=== PATIENT | female | born 1985 | race Caucasian/White ===

== ENCOUNTER 2017-06-25 20:07 | Emergency (ER) | payer BC ==
[~2017-06-25] VITALS: Ht 162.6 cm; Wt 96.6 kg
[2017-06-25 20:12] VITALS: BP 153/84
[2017-06-25 20:47] LABS: BASO # 0.1 x10^3/uL (0.0-0.2); BASO % 1 % (0-3); EOS % 1 % (0-3); HEMATOCRIT 43.5 % (36.0-47.0); HEMOGLOBIN 14.4 g/dL (12.0-15.5); LYMPH # 4.3 x10^3/uL (1.0-4.8); LYMPH % 30 % (24-48); MEAN CORPUSCULAR HEMOGLOBIN 30 pg (25-35); MEAN CORPUSCULAR HGB CONC 33 g/dL (31-37); MEAN CORPUSCULAR VOLUME 92 fL (79-100); MONO % 7 % (0-9); NEUT % 61 % (31-73); PLATELET COUNT 235 x10^3/uL (140-400); RED BLOOD COUNT 4.75 x10^6/uL (3.50-5.40); RED CELL DISTRIBUTION WIDTH 12.6 % (11.5-14.5); WHITE BLOOD COUNT 14.1 x10^3/uL (4.0-11.0)
[2017-06-25] MEDS ORDERED: KETOROLAC 15 MG/ML VIAL. IV ONE (21:00)
[2017-06-25 22:07] LABS: CALCIUM 9.3 mg/dL (8.5-10.1); CREATININE 0.8 mg/dL (0.6-1.0); GFR 83.1; POTASSIUM 4.4 mmol/L (3.5-5.1)
[2017-06-25 22:14] LABS: ALBUMIN 3.9 g/dL (3.4-5.0); ALBUMIN/GLOBULIN RATIO 1.2 (1.0-1.7); TOTAL BILIRUBIN 0.3 mg/dL (0.2-1.0); TOTAL PROTEIN 7.2 g/dL (6.4-8.2)
[2017-06-25] MEDS ORDERED: HYDROmorphone 2 MG/ML VIAL IV ONE (22:15)
[2017-06-25] MEDS ORDERED: TRAM-48 PO (22:41)
[2017-06-25] MEDS ORDERED: AMOX500C PO (22:41)
--- NOTE | 2017-06-25 22:42 | PHYS DOC ---
Past Medical History Past Medical History: Other Additional Past Medical Histor: HERNIATED DISC; GALLSTONES Past Surgical History: No Surgical History Alcohol Use: None Drug Use: None Adult General Chief Complaint Chief Complaint: MULTIPLE COMPLAINTS HPI HPI Patient is a 32 year old female who presents here today complaining of dental pain and chest pain that's been going on for approximately 1-2 days now. Patient reports that she's had a cough and congestion. Patient denies any history of hypertension diabetes liver longer kidney problems. Patient has any prior surgeries. Patient does not smoke drink or do any drugs. Patient has no history of PE or DVT. Patient has no family history of PE or DVT. Patient is not on any oral contraceptive pills. Patient's last menstrual period was May 28, 2017. Patient denies any fevers shakes chills dysuria frequency urgency nausea vomiting diarrhea or abdominal pain. Patient denies any exertional chest pain. Patient reports the pain increases with deep inspiration and cough. Patient reports she has pain in her left upper jaw Radiating to her ear.Review of systems Constitutional: Denies fever or chills Eyes: Denies change in visual acuity, redness, or eye pain All other review systems are negative except as documented in the history of present illness portion. Physical exam Constitutional: Well developed, well nourished, no acute distress, non-toxic appearance. HENT: Normocephalic, atraumatic, bilateral external ears normal, oropharynx moist, no oral exudates, nose normal. Tenderness to palpation to her left upper gums. Eyes: conjunctiva normal, no discharge. Neck: Normal range of motion, no tenderness, supple, no stridor. Cardiovascular:Heart rate regular rhythm, 100% reproducible tenderness to palpation to her midsternal area and left anterior chest wall. Lungs & Thorax: Bilateral breath sounds clear to auscultation Abdomen: Bowel sounds normal, soft, no tenderness, no masses, no pulsatile masses. Skin: Warm, dry, Back: No tenderness, Extremities: No tenderness, no cyanosis, Neurologic: Alert and oriented X 3, normal motor function, normal sensory function, no focal deficits noted. Psychologic: Affect normal, judgement normal, mood normal. Assessment and plan this is a 32-year-old female who presents here today complaining of pleuritic chest pain as well as dental pain. Patient's clinically and hemodynamically stable. Patient's EKG was nondiagnostic. EKG revealed normal sinus rhythm with nonspecific ST-T wave abnormalities and no evidence of ST elevation AK. Patient's chest x-ray was clear without evidence of pneumonia. No infiltrates or effusions or pneumothorax. Patient's CBC CMP and chemistry were all within normal limits. Patient received Toradol and Dilaudid with significant improvement in her pain. Patient be discharged home with Ultram as well as amoxicillin to assist her with her dental pain for possible dental infection. Current Medications Current Medications Current Medications Medications (Trade) Dose Ordered Sig/[place] Start Time Stop Time Status Last Admin Dose Admin Hydromorphone HCl (Dilaudid) 0.5 mg 1X ONCE 06/25/17 22:15 06/25/17 22:16 DC 06/25/17 22:07 0.5 MG Ketorolac Tromethamine (Toradol) 15 mg 1X ONCE 06/25/17 21:00 06/25/17 21:01 DC 06/25/17 20:58 15 MG Allergies Allergies Allergies Coded Allergies Type Severity Reaction Last Updated Verified oxycodone Allergy Intermediate DOSEN'T LIKE IT 09/22/14 No Current Patient Data Vital Signs Vital Signs Date Time Temp Pulse Resp B/P (MAP) Pulse Ox O2 Delivery O2 Flow Rate FiO2 06/25/17 20:12 99.1 90 22 153/84 (107) 98 Room Air 99.1 Lab Values Laboratory Tests Test 06/25/17 20:24 06/25/17 21:40 White Blood Count 14.1 x10^3/uL (4.0-11.0) H Red Blood Count 4.75 x10^6/uL (3.50-5.40) Hemoglobin 14.4 g/dL (12.0-15.5) Hematocrit 43.5 % (36.0-47.0) Mean Corpuscular Volume 92 fL (79-100) Mean Corpuscular Hemoglobin 30 pg (25-35) Mean Corpuscular Hemoglobin Concent 33 g/dL (31-37) Red Cell Distribution Width 12.6 % (11.5-14.5) Platelet Count 235 x10^3/uL (140-400) Neutrophils (%) (Auto) 61 % (31-73) Lymphocytes (%) (Auto) 30 % (24-48) Monocytes (%) (Auto) 7 % (0-9) Eosinophils (%) (Auto) 1 % (0-3) Basophils (%) (Auto) 1 % (0-3) Neutrophils # (Auto) 8.6 x10^3uL (1.8-7.7) H Lymphocytes # (Auto) 4.3 x10^3/uL (1.0-4.8) Monocytes # (Auto) 0.9 x10^3/uL (0.0-1.1) Eosinophils # (Auto) 0.2 x10^3/uL (0.0-0.7) Basophils # (Auto) 0.1 x10^3/uL (0.0-0.2) Sodium Level 141 mmol/L (136-145) Potassium Level 4.4 mmol/L (3.5-5.1) Chloride Level 105 mmol/L (98-107) Carbon Dioxide Level 27 mmol/L (21-32) Anion Gap 9 (6-14) Blood Urea Nitrogen 18 mg/dL (7-20) Creatinine 0.8 mg/dL (0.6-1.0) Estimated GFR (Cockcroft-Gault) 83.1 BUN/Creatinine Ratio 23 (6-20) H Glucose Level 102 mg/dL (70-99) H Calcium Level 9.3 mg/dL (8.5-10.1) Total Bilirubin 0.3 mg/dL (0.2-1.0) Aspartate Amino Transferase (AST) 17 U/L (15-37) Alanine Aminotransferase (ALT) 27 U/L (14-59) Alkaline Phosphatase 102 U/L (46-116) Troponin I Quantitative < 0.017 ng/mL (0.000-0.055) Total Protein 7.2 g/dL (6.4-8.2) Albumin 3.9 g/dL (3.4-5.0) Albumin/Globulin Ratio 1.2 (1.0-1.7) Laboratory Tests 06/25/17 20:24 Laboratory Tests 06/25/17 21:40 EKG EKG [] Radiology/Procedures Radiology/Procedures [] Course & Med Decision Making Course & Med Decision Making Pertinent Labs and Imaging studies reviewed. (See chart for details) [] Dragon Disclaimer Dragon Disclaimer This electronic medical record was generated, in whole or in part, using a voice recognition dictation system. Departure Departure Impression: Primary Impression: Pain, dental Additional Impressions: Chest pain Upper respiratory infection Disposition: HOME, SELF-CARE Condition: IMPROVED Referrals: NO PCP (PCP) Patient Instructions: Acute Bronchitis, Chest Wall Pain, Dental Pain Scripts Tramadol Hcl (ULTRAM) 50 Mg Tablet 1 TAB PO Q6HRS, #14 TAB Prov: MIGUEL FERREIRA MD 06/25/17 Amoxicillin (AMOXICILLIN) 500 Mg Capsule 1 CAP PO TID, #30 CAP Prov: MIGUEL FERREIRA MD 06/25/17 Problem Qualifiers MIGUEL FERREIRA MD Jun 25, 2017 22:42
--- NOTE | 2017-06-26 08:27 | RAD ---
PA and lateral chest. History: Chest pain PA and lateral views were taken of the chest. Lungs are clear. Heart is normal in size. There is no pleural effusion. Impression: 1. No acute chest disease.
== END 2017-06-25 23:11 | disposition home or self-care (01) ==
LOC: ER 20:07
DX: K08.9 Disorder of teeth and supporting structures, unspecified (principal); R07.89 Other chest pain; J06.9 Acute upper respiratory infection, unspecified; Z88.5 Allergy status to narcotic agent
CPT/HCPCS: 36415; 71020; 80053; 84484; 85025; 96374; 96375; 99285; J1170; J1885

== ENCOUNTER 2017-09-26 01:42 | Emergency (ER) | payer BC ==
[2017-09-26 02:11] LABS: BASO # 0.1 x10^3/uL (0.0-0.2); BASO % 0 % (0-3); BILIRUBIN,URINE NEGATIVE (NEG); CLARITY,URINE CLOUDY; COLOR,URINE YELLOW; EOS # 0.1 x10^3/uL (0.0-0.7); EOS % 1 % (0-3); GLUCOSE,URINE NEGATIVE (NEG); HEMATOCRIT 45.1 % (36.0-47.0); HEMOGLOBIN 14.7 g/dL (12.0-15.5); LYMPH % 7 % (24-48); MEAN CORPUSCULAR HEMOGLOBIN 30 pg (25-35); MEAN CORPUSCULAR HGB CONC 33 g/dL (31-37); MEAN CORPUSCULAR VOLUME 92 fL (79-100); MONO # 0.8 x10^3/uL (0.0-1.1); MONO % 5 % (0-9); NEUT # 12.9 x10^3uL (1.8-7.7); NEUT % 87 % (31-73); NITRITE,URINE NEGATIVE (NEG); PH,URINE 5.5; PLATELET COUNT 193 x10^3/uL (140-400); PROTEIN,URINE NEGATIVE (NEG-TRACE); RED BLOOD COUNT 4.92 x10^6/uL (3.50-5.40); RED CELL DISTRIBUTION WIDTH 12.8 % (11.5-14.5); UROBILINOGEN,URINE 0.2 mg/dL (0.2 mg/dL); WHITE BLOOD COUNT 14.8 x10^3/uL (4.0-11.0)
[2017-09-26 02:12] LABS: ADD MAN DIFF? YES
[2017-09-26 02:13] LABS: URINE HCG POC HCG NEGATIVE (Negative)
[2017-09-26 02:17] LABS: BACTERIA,URINE FEW /HPF (0-FEW); RBC,URINE 0 /HPF (0-2); SQUAMOUS EPITHELIAL CELL,UR MANY /LPF
[2017-09-26 02:20] LABS: ANION GAP 12 (6-14); BLOOD UREA NITROGEN 22 mg/dL (7-20); BUN/CREATININE RATIO 31 (6-20); CALCIUM 7.9 mg/dL (8.5-10.1); CARBON DIOXIDE 24 mmol/L (21-32); CHLORIDE 105 mmol/L (98-107); CREATININE 0.7 mg/dL (0.6-1.0); GLUCOSE 125 mg/dL (70-99); SODIUM 141 mmol/L (136-145)
[2017-09-26] MEDS: IV NORMAL SALINE 1000ML BAG 1,000 ML IV (02:20)
[2017-09-26] MEDS: ONDANSETRON PF 4 MG/2 ML VIAL. IV (02:21)
[2017-09-26] MEDS: FAMOTIDINE 20 MG/2 ML VIAL IVP (02:22)
[2017-09-26] MEDS: LIDO:MAALOX:DONNATAL 1:1:1 15 ML SINGLE DOSE SWSW (02:22)
[2017-09-26 02:27] LABS: ALBUMIN 3.8 g/dL (3.4-5.0); ALBUMIN/GLOBULIN RATIO 1.2 (1.0-1.7); ALK PHOS 84 U/L (46-116); ALT (SGPT) 29 U/L (14-59); AST (SGOT) 16 U/L (15-37); LIPASE 119 U/L (73-393); TOTAL BILIRUBIN 0.9 mg/dL (0.2-1.0)
[2017-09-26 03:01] LABS: % BANDS 1 % (0-9); % EOS 2 % (0-5); % LYMPHS 5 % (24-48); % MONOS 5 % (0-10); % SEGS 87 % (35-66); PLT ESTIMATE ADEQUATE (ADEQUATE); TOXIC GRANULATION SLIGHT
== END 2017-09-26 03:50 | disposition home or self-care (01) ==
LOC: ER 01:42
DX: K80.20 Calculus of gallbladder without cholecystitis without obstruction (principal); E83.51 Hypocalcemia; Z88.5 Allergy status to narcotic agent
CPT/HCPCS: 36415; 76705; 80053; 81001; 81025; 83690; 85007; 85025; 87086; 96361; 96374; 96375; 99285-25; J2405; J7030; S0028